=== PATIENT | female | born 1990 | race Hispanic/Latino ===

== ENCOUNTER 2017-07-14 10:14 | Emergency (ER) | payer OTHER ==
[~2017-07-14] VITALS: Ht 154.9 cm; Wt 81.8 kg
[~2017-07-14 10:14] MED LIST: CEPH-512 PO
[2017-07-14 10:24] VITALS: BP 144/100; PULSE 118; RESP 16; O2SAT 100
--- NOTE | 2017-07-14 10:31 | ED.REPORT ---
HPI-Dental/Mouth Prob Date of Service Jul 14, 2017 ED Provider: Rajendra Zuñiga MD Pt is a generally healthy 27 y/o female presenting to the ED c/o left lower molar dental pain onset the past few days. She noticed a hole in her tooth which is increasing in size and causing her tooth pain and left ear pain. Pt denies any other symptoms. She has tried dental gel on it without relief. She hasn't seen a dentist for this but has one available to see. She has been seen in the ED for dental caries in the past. Nursing Notes Stated Complaint: DENTAL AND EAR PAIN Chief Complaint: Dental Nursing Notes Reviewed: Yes Allergies: Coded Allergies: No Known Allergies (Verified , 03/26/08) Scheduled Amoxicillin/Clav K 875-125 mg (Augmentin 875-125 mg) 1 Each Tablet 1 TABLET PO BID Cephalexin (Keflex) 500 Mg Capsule 500 MG PO TID Scheduled PRN Ibuprofen (Ibuprofen) 800 Mg Tablet 800 MG PO TID PRN PRN For Pain General Time Seen by MD: 10:30 Chief Complaint Tooth pain Hx Obtained From: Patient Arrived By: Walk-in Onset Occurred: 3 days ago Symptom Duration: Since onset Location: : Tooth lower L molar Quality: Painful Severity: Current: Moderate Severity: Maximum: Moderate Recent Healthcare: Previous diagnosis Similar Sx Previous: Yes Past Medical History Past Medical History Dental caries Reports: Asthma Past Surgical History denies Smoking History Never Smoker Social History Alcohol Use: Denies alcohol use Drug Use: Denies drug use Occupation lives with Mom and brothers and sisters. Work at [employer] Status Independent Review of Systems Constitutional: Denies: Chills, Fever Ears / Nose / Throat: Reports: Earache left, Toothache Respiratory: Denies: Shortness of breath GI: Denies: Nausea, Vomiting Complete sys rev & neg: except as marked. Physical Exam Initial Vital Signs Vital Signs (First) Date Time Temp Pulse Resp B/P Pulse Ox O2 Delivery O2 Flow Rate FiO2 07/14/17 10:24 36.3 118 16 144/100 100 Room Air Initial VS: Reviewed, Vital signs abnormal Head / Eyes: Atraumatic, Normocephalic Respiratory: Breath sounds normal, Clear to auscultation, No respiratory distress Cardiovascular: Regular rate & rhythm, Heart sounds normal, Intact distal pulses Abdomen / GI: No distention Extremities: Vascular intact, Neuro intact Skin: Warm, Dry, No cyanosis Neurologic: Alert, Oriented, Nonfocal Psychiatric: Mood/affect normal, Behavior normal, Normal thought content ENT: Atraumatic, Airway patent, Mucous membranes moist, Pharynx NL, No pooling of secretions, No trismus, Tympanic membs NL, Ext aud canal NL, No facial swelling Left lower molar dental caries No surrounding erythema, fluctuance, discharge Tender to palpation Neck: Supple, No meningismus, Full range of motion Re-Eval/Medical Decision Med Decision/Clinical Course Dental pain. No evidence of abscess. Tender. We will treat with antibiotics. Follow-up tenderness. Source of Hx: Old records Re-Evaluation/Progress : Time of Eval: 10:37 Re-Evaluation/Progress Note: F/U instructions and RTER warnings given. All questions addressed. Counseled Regarding: Diagnosis, Need for follow-up, When/why to return to ED Discharge & Departure Primary Impression: Pain due to dental caries Disposition: Home Discharge Condition All VS Reviewed: Yes Condition: Stable Patient Instructions: Dental Caries (ED) Additional Instructions: Your pain is caused by dental caries. There may be an infection therefore I would like you to begin taking antibiotics. Take the full course as directed. There is no sign of ear infection. Return to the emergency department if you experience neck/face/throat swelling, trouble swallowing/breathing, high fever, vomiting, or for other concerning symptoms. Make an appointment to see a dentist for definitive management. Referrals: NOPCP (PCP) Scribe Attestation Portions of this note were transcribed by Shay Will. I, Dr. Zuñiga personally performed the history, physical exam and medical decision-making; I reviewed and confirmed the accuracy of the information in the transcribed note. Rajendra Zuñiga MD Jul 14, 2017 10:31 SHAY WILL Jul 14, 2017 10:40
[2017-07-14] MEDS ORDERED: AMOX-366 PO (10:36)
[2017-07-14] MEDS ORDERED: IBUP800T28 PO (10:36)
[2017-07-14 10:56] VITALS: BP 143/97; PULSE 102; RESP 20; O2SAT 97
== END 2017-07-14 10:57 | disposition home or self-care (01) ==
LOC: SED 10:14
DX: K02.9 Dental caries, unspecified (principal); K08.89 Other specified disorders of teeth and supporting structures; H92.02 Otalgia, left ear; J45.909 Unspecified asthma, uncomplicated
CPT/HCPCS: 96372; 99283; J1885